=== PATIENT | female | born 1960 | race Caucasian/White ===

== ENCOUNTER 2023-01-23 06:55 | Day surgery (SDC) | payer MEDICAID ==
[~2023-01-23] VITALS: Ht 154.9 cm; Wt 78.0 kg
[2023-01-23] MEDS ORDERED: fentaNYL CITRATE/PF 100 MCG/2 ML AMP ONE (08:15)
[2023-01-23] MEDS ORDERED: MIDAZOLAM HCL 5 MG/5 ML VIAL ONE (08:16)
[2023-01-23] MEDS ORDERED: SIMETHICONE 40 MG/0.6 ML ML ONE (08:16)
[2023-01-23] MEDS ORDERED: DIPHENHYDRAMINE INJ 50 MG/ML VIAL ONE (08:26)
[2023-01-23 17:13] VITALS: BP_SYST 146; PULSE 93; RESP 16; TEMP 97.6; O2SAT 99
== END 2023-01-23 10:50 | disposition home or self-care (01) ==
LOC: SDS 06:55 → SMU 06:57 → SDS 10:50
PROVIDERS: ATTEND Internal Medicine
DX: Z12.11 Encounter for screening for malignant neoplasm of colon (principal); K64.8 Other hemorrhoids; I10 Essential (primary) hypertension; E11.9 Type 2 diabetes mellitus without complications; E78.5 Hyperlipidemia, unspecified; Z90.49 Acquired absence of other specified parts of digestive tract; Z79.84 Long term (current) use of oral hypoglycemic drugs; Z79.899 Other long term (current) drug therapy
CPT/HCPCS: 45378; 82962; 99152; G0378; J1200; J2250; J3010